=== PATIENT | male | born 2000 | race Caucasian/White ===

== ENCOUNTER 2023-05-06 19:19 | Emergency (ER) | payer OTHER ==
[~2023-05-06] VITALS: Ht 198.1 cm; Wt 116.6 kg
[2023-05-06] MEDS: NS 1,000 ML IV ONE ×2 (10:00→22:08)
[2023-05-06] MEDS: ONDANSETRON 4MG 2ML VIAL IV ONE (22:08)
[2023-05-06] MEDS ORDERED: ONDA4TAB6 PO (22:46)
[2023-05-06 23:30] VITALS: BP 131/68
[2023-05-06 23:34] VITALS: TEMP 98.9; O2SAT 95
== END 2023-05-06 23:40 | disposition home or self-care (01) ==
LOC: M ED 19:19
DX: A09 Infectious gastroenteritis and colitis, unspecified (principal); F17.290 Nicotine dependence, other tobacco product, uncomplicated; F10.10 Alcohol abuse, uncomplicated; Z79.899 Other long term (current) drug therapy
CPT/HCPCS: 87486; 87507; 87581; 87633; 87798; 96361; 96374; 99284; J2405

== ENCOUNTER 2024-04-13 20:02 | Emergency (ER) | payer OTHER ==
[~2024-04-13] VITALS: Ht 195.6 cm; Wt 113.6 kg
[~2024-04-13 20:02] MED LIST: ONDA-282 PO
[2024-04-13 20:21] VITALS: TEMP 98.9
[2024-04-13] MEDS: ONDANSETRON 4MG 2ML VIAL IV ONE (20:29)
[2024-04-13] MEDS: NS (Normal Saline) 0.9% 1,000 ML IV ONE (20:30)
[2024-04-13] MEDS: KETOROLAC 30 MG/ML 1ML VIAL IV PRN (20:30)
[2024-04-13 20:43] LABS: BASO % 0.3 % (0.0-1.0); EOS # 0.3 10^3/uL (0.0-0.5); EOS % 2.5 % (0.0-3.0); HEMATOCRIT 52.3 % (42.0-52.0); HEMOGLOBIN 17.3 g/dl (13.5-17.5); LYMPH # 0.7 10^3/uL (1.5-5.0); LYMPH % 6.5 % (24.0-44.0); MEAN CORPUSCULAR HEMOGLOBIN 28.5 pg (27.0-33.0); MEAN CORPUSCULAR HGB CONC 33.1 g/dl (32.0-36.5); MONO # 1.1 10^3/uL (0.0-0.8); NEUTROPHILS # 8.5 10^3/uL (1.5-8.5); NEUTROPHILS % 79.9 % (36.0-66.0); PLATELET COUNT, AUTOMATED 273 10^3/uL (150-450); RED BLOOD COUNT 6.08 10^6/uL (4.30-6.10); WHITE BLOOD COUNT 10.6 10^3/uL (4.0-10.0)
[2024-04-13 21:03] LABS: LIPASE 33 U/L (12-53)
[2024-04-13] MEDS ORDERED: ISOVUE-370 76% 100ML VIAL As Ordered ONE (21:32)
[2024-04-13 21:44] LABS: ALKALINE PHOSPHATASE 121 U/L (40-129); ALT/SGPT 39 U/L (7.0-40); AST/SGOT 27 U/L (<34); BILIRUBIN,DIRECT 0.3 MG/DL (<0.4); BILIRUBIN,TOTAL 1.2 MG/DL (0.3-1.2); BLOOD UREA NITROGEN 19 MG/DL (9-23); CALCIUM LEVEL 9.7 MG/DL (8.5-10.1); CARBON DIOXIDE LEVEL 24 MMOL/L (20-31); CHLORIDE LEVEL 105 MMOL/L (98-107); CREATININE FOR GFR 1.03 MG/DL (0.70-1.30); GLOMERULAR FILTRATION RATE > 60.0 (>60); GLUCOSE, FASTING 117 MG/DL (60-100); POTASSIUM SERUM 4.4 MMOL/L (3.5-5.1); SODIUM LEVEL 140 MMOL/L (136-145); TOTAL PROTEIN 8.5 G/DL (5.7-8.2)
[2024-04-13 21:47] LABS: ALBUMIN 4.6 G/DL (3.2-5.2)
[2024-04-13] MEDS ORDERED: ONDA-282 PO (23:26)
[2024-04-13 23:45] VITALS: BP 131/64; O2SAT 98
== END 2024-04-13 23:58 | disposition home or self-care (01) ==
LOC: M ED 20:02
DX: A08.11 Acute gastroenteropathy due to Norwalk agent (principal); F17.200 Nicotine dependence, unspecified, uncomplicated
CPT/HCPCS: 74177; 80047; 80048; 80076; 83690; 85025; 87507; 93041; 96374; 96375; 99285; J1885; J2405; Q9967